=== PATIENT | male | born 1990 | race Caucasian/White ===

== ENCOUNTER 2017-08-27 22:43 | Emergency (ER) | payer MEDICAID ==
[~2017-08-27] VITALS: Ht 172.7 cm; Wt 64.9 kg
[2017-08-27 22:48] VITALS: BP_SYST 116
[2017-08-28] MEDS ORDERED: BACITRACIN 1 GM OINT TP ONE (00:15)
[2017-08-28 00:40] VITALS: BP_SYST 117
== END 2017-08-28 00:40 | disposition home or self-care (01) ==
LOC: SED 22:43
DX: S82.52XA Displaced fracture of medial malleolus of left tibia, initial encounter for closed fracture (principal); S70.311A Abrasion, right thigh, initial encounter; S80.212A Abrasion, left knee, initial encounter; S30.811A Abrasion of abdominal wall, initial encounter; V89.2XXA Person injured in unspecified motor-vehicle accident, traffic, initial encounter; Y93.89 Activity, other specified; Y92.89 Other specified places as the place of occurrence of the external cause; Y99.8 Other external cause status
CPT/HCPCS: 99284